=== PATIENT | male | born 1945 | race Caucasian/White ===

== ENCOUNTER → 2023-05-09 06:31 | Day surgery (SDC) | payer OTHER, SELFPAY | LOC: GI 06:31 | PROVIDERS: ATTENDING PHYSICIAN Specialist | DX: Z12.11 Encounter for screening for malignant neoplasm of colon (principal); K57.30 Diverticulosis of large intestine without perforation or abscess without bleeding; Z86.010 Personal history of colon polyps | CPT/HCPCS: G0105 ==

== ENCOUNTER → 2024-12-08 18:32 | Outpatient (REF) | payer OTHER, SELFPAY | LOC: MRI 3T 18:32 | PROVIDERS: ATTENDING PHYSICIAN Specialist; FAMILY PHYSICIAN Family Medicine | DX: R97.20 Elevated prostate specific antigen [PSA] (principal) | CPT/HCPCS: 72197; A9575 ==

== ENCOUNTER 2024-12-22 16:49 | Emergency (ER) | payer OTHER, SELFPAY ==
[2024-12-22] VITALS (29 sets, daily range): BP systolic 92–139; BP diastolic 46–79; PULSE 65–81
[2024-12-22] MEDS: NSS 1000 IV (17:10)
[2024-12-22 17:17] LABS: Hematocrit 38.4 % (39.0-52.0); Hemoglobin 13.2 g/dL (13.0-18.0); Mean Corp Hgb Conc. 34.4 g/dL (33.0-37.0); Mean Corpuscular Volume 90.1 fL (80.0-94.0); Nucleated Red Blood Cells % 0 % (-); Platelet Count 307 10^3/uL (130-400); Red Cell Dist. Width 12.5 % (11.5-14.5)
[2024-12-22 17:36] LABS: ALT (SGPT) 36 U/L (0-50); AST (SGOT) 33 U/L (17-59); Albumin 4.0 g/dl (3.5-5.0); Alkaline Phosphatase 68 U/L (38-126); Blood Urea Nitrogen 16 mg/dl (9-20); Calcium 9.1 mg/dl (8.4-10.2); Carbon Dioxide 24 mmol/L (22-30); Chloride 101 mmol/L (98-107); Glucose 148 mg/dl (70-99); Potassium 4.3 mmol/L (3.5-5.1); Sodium 133 mmol/L (135-145); Total Protein 6.5 g/dl (6.3-8.2); eGFR > 60.00
--- NOTE | 2024-12-22 18:08 | ED.GENMED ---
History of Present Illness
General
Chief Complaint: Abdominal Symptoms
Time Seen by Provider: 12/22/24 17:03
History of Present Illness
History of Present Illness:
79-year-old male with history of hypertension presenting to the emergency department for bright red blood per rectum. Patient is status post prostate biopsy earlier today with Dr. Sanchez. Notes that when he got home started to have bright red
blood per rectum. Reports about 8 episodes prior to arrival. In triage, near syncopal episode. Denies any blood thinners. Denies any abdominal pain. Denies any history of needing a blood transfusion. Does note some generalized lightheadedness.
notes at home that there was a significant amount of blood with blood clots. No additional history obtained at this time
Past History
Past History
ED Past Medical History: HTN
ED Past Surgical History: Other (Hernia repair, dental extraction)
Social History
Tobacco: Non-smoker
Alcohol: None
Drug: None
Phy Exam
Physical Exam
Physical Exam:
General: Pale, diaphoretic
HEENT: protecting airway
Neck: appears supple
CV: Normal heart rate, regular rhythm
Resp: No accessory muscle use, no increased work of breathing, lungs clear to auscultation bilaterally
Abd: Soft and non-distended, no tenderness to palpation
Extremities: No deformities, no swelling
Neuro: alert, no focal neurologic deficit
: deferred
Rectal: Bright red blood per rectum, however no active hemorrhage
Psych: Normal affect
Skin: Intact
Course
Orders/Labs/Results
Orders:
Orders
12/22/24 16:54
EKG [Electrocardiogram (*1)] Urgent
Reason for Study: Vertigo / Dizzy
EKG- Treatment ONCE
12/22/24 17:03
0.9% Sodium Chloride 1000 ml [Nss] 1,000 ml IV BOLUS
12/22/24 17:04
Type And Crossmatch [Type+Screen] Urgent
CBC/With Diff [Complete Blood Count/With Diff] Urgent
CMP [Comprehensive Metabolic Panel] Urgent
12/22/24 19:15
CBC/No Diff [Complete Blood Count/No Diff] Urgent
12/22/24 21:00
CBC/No Diff [Complete Blood Count/No Diff] Urgent
Abnormal Lab Results
12/22/24 12/22/24 12/22/24
17:04 19:15 21:00
WBC 13.4 H 10^3/uL 13.7 H 10^3/uL 11.5 H 10^3/uL
(4.8-10.8) (4.8-10.8) (4.8-10.8)
RBC 4.26 L 10^6/uL 3.78 L 10^6/uL 3.77 L 10^6/uL
(4.70-6.10) (4.70-6.10) (4.70-6.10)
Hgb 11.8 L g/dL 11.6 L g/dL
(13.0-18.0) (13.0-18.0)
Hct 38.4 L % 34.2 L % 33.8 L %
(39.0-52.0) (39.0-52.0) (39.0-52.0)
MCH 31.2 H pg
(27.0-31.0)
Abs Immat Gran (auto) 0.1 H 10^3/uL
(0-0.05)
Absolute Neuts (auto) 10.2 H 10^3/uL
(1.4-6.5)
Absolute Monos (auto) 0.9 H 10^3/uL
(0.1-0.6)
Neutrophils % 76.3 H %
(42.2-75.2)
Lymphocytes % 14.1 L %
(20.5-51.1)
Sodium 133 L mmol/L
(135-145)
Glucose 148 H mg/dl
(70-99)
12/22/24 21:00
12/22/24 17:04
Vital Signs
Initial and Last Documented VS:
Initial Vital Signs
Temp Pulse Resp BP Pulse Ox
98.1 F 82 12 115/67 99
12/22/24 16:52 12/22/24 16:52 12/22/24 16:52 12/22/24 16:52 12/22/24 16:52
Last Documented Vital Signs
Temp Pulse Resp BP Pulse Ox
98.1 F 92 17 131/66 98
12/22/24 16:52 12/22/24 22:30 12/22/24 22:30 12/22/24 22:00 12/22/24 22:00
MDM/Problems Addressed
MDM/Problems Addressed:
79-year-old male with history of hypertension presenting with bright red blood per rectum after prostate biopsy. Vital signs on arrival are normal.
On exam, patient initially pale and diaphoretic, however improved once in examination room and hooked up to monitor. At this vasovagal episode from volume loss and blood loss. Regarding GI bleed, likely complication from recent prostate biopsy.
Will start resuscitation with IV fluids, check hemoglobin for any transfusion needs, and consult with urology
17:15 - In discussion with urology, recommending manual trans rectal pressure for 2 to 3 minutes and then slender rectal packing.
17:40 -transrectal pressure performed. No active bleeding at this time. Was unable to get any packing in place. In discussion with urology, recommending continued observation for a few hours to ensure no continued bleeding with likely disposition
home.
21:00 -repeat hemoglobin has dropped a little more than 1 point. No further bowel movements. Blood pressure stable. Repeating additional hemoglobin for full 4-hour hemoglobin
22:40 -hemoglobin is 11.6, without significant change. When patient stood up, blood pressure did drop slightly, however was asymptomatic. Patient offered admission for continued monitoring and hydration.. Feel that this is reasonable, however
strict return precautions were communicated to and patient at bedside who verbalized understanding
*Pulse Oximetry
SaO2: 100
Oxygen Mode of Delivery: Room air
Patient hypoxic: no
*Critical Care Note
Total Time (30-74mins, 75-104mins- exclusive of procedures): 42
comment:
The high probability of a clinically significant, sudden or life threatening deterioration of the GI bleed system(s) required my full and direct attention, intervention and personal management. The aggregate critical care time was 42 minutes. This
time is in addition to time spent performing reported procedures but includes the following:
[x] Data Review and interpretation
[x] Patient assessment and monitoring of vital signs
[x] Documentation
[x] Medication orders and management
ED Attending Note
-
Portions of this chart may have been created with voice recognition software.� Occasional wrong word or��sound alike� substitutions may have occurred due to the inherent limitations of voice recognition software.
Discharge Plan
Departure
Referrals:
Edmundo Khan DO [Family Provider, Surgical]
Interventions
Interventions:
*Risk Screen - Suicide Last Done: 12/22/24 16:52
*General Assessment Last Done: 12/22/24 16:52
*Neglect/Abuse Screening Last Done: 12/22/24 16:52
*ED COVID-19 Vaccine History Last Done: 12/22/24 16:52
*ED Influenza Vaccine History Last Done: 12/22/24 16:52
[id number] Assessment Last Done: 12/22/24 19:40
Discharge Date and Time
Print Language: UKRAINIAN
[2024-12-22 19:40] LABS: Hematocrit 34.2 % (39.0-52.0); Hemoglobin 11.8 g/dL (13.0-18.0); Mean Corp Hgb Conc. 34.5 g/dL (33.0-37.0); Mean Corpuscular Volume 90.5 fL (80.0-94.0); Platelet Count 219 10^3/uL (130-400); Red Cell Dist. Width 12.7 % (11.5-14.5)
[2024-12-22 21:07] LABS: Hematocrit 33.8 % (39.0-52.0); Hemoglobin 11.6 g/dL (13.0-18.0); Mean Corp Hgb Conc. 34.3 g/dL (33.0-37.0); Mean Corpuscular Volume 89.7 fL (80.0-94.0); Platelet Count 226 10^3/uL (130-400); Red Cell Dist. Width 12.6 % (11.5-14.5)
== END 2024-12-22 23:04 | disposition home or self-care (01) ==
LOC: EMR 16:49
PROVIDERS: Emergency Medicine; EMERGENCY PHYSICIAN Student in an Organized Health Care Education/Training Program; FAMILY PHYSICIAN Surgery
DX: K91.841 Postprocedural hemorrhage of a digestive system organ or structure following other procedure (principal); I10 Essential (primary) hypertension
CPT/HCPCS: 99291; 96360; 80053; 85025; 85027; 86850; 86900; 86901; 93005

== ENCOUNTER → 2025-02-02 20:31 | Outpatient (REF) | payer OTHER, SELFPAY | LOC: MRI 20:31 | PROVIDERS: ATTENDING PHYSICIAN Radiology Radiation Oncology; FAMILY PHYSICIAN Family Medicine | DX: C61 Malignant neoplasm of prostate (principal) | CPT/HCPCS: 74183; A9575 ==